=== PATIENT | male | born 1965 | race Caucasian/White ===

== ENCOUNTER 2017-11-22 22:35 | Emergency (ER) | payer BC ==
--- NOTE | 2017-11-23 00:31 | EDM.PDOC ---
ED HPI GENERAL MEDICAL PROBLEM - General Chief Complaint: Neck Problem Stated Complaint: NECK/HEAD PAIN; LYMES?? Time Seen by Provider: 11/23/17 00:22 Source of Information: Reports: Patient, RN Notes Reviewed History Limitations: Reports: No Limitations - History of Present Illness INITIAL COMMENTS - FREE TEXT/NARRATIVE: 51-year-old gentleman presents to the emergency department with complaint of neck pain and headache, he states this is very similar to when he had an episode of line couple years ago, he woke up this morning with a stiff neck but about his business today however the neck pain continued to get worse. 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 no fever - Related Data Allergies Allergy/AdvReac Type Severity Reaction Status Date / Time No Known Allergies Allergy Verified 11/22/17 23:08 Home Meds: Home Meds NK [No Known Home Meds] 11/22/17 [History] Past Medical History Cardiovascular History: Reports: Hypertension Gastrointestinal History: Reports: None Genitourinary History: Reports: None - Infectious Disease History Infectious Disease History: Reports: Other (See Below) ( Lyme disease) - Past Surgical History GI Surgical History: Reports: Hernia, Inguinal Other Musculoskeletal Surgeries/Procedures:: L HAND FX Social & Family History - Tobacco Use Smoking Status *Q: Unknown Ever Smoked ED ROS PEDIATRIC - Review of Systems Review Of Systems: See Below Constitutional: Denies: Fever Respiratory: Reports: No Symptoms Cardiovascular: Reports: No Symptoms Musculoskeletal: Reports: Neck Pain Skin: Reports: No Symptoms ED EXAM, GENERAL (PEDS) - Physical Exam Exam: See Below Exam Limited By: No Limitations General Appearance: WD/WN, No Apparent Distress Eyes: Bilateral: Normal Appearance Neck: Normal Inspection, Tender Lateral. No: Lymphadenopathy (R), Lymphadenopathy (L), Thyromegaly, Nuchal Rigidity Respiratory/Chest: No Respiratory Distress, Lungs Clear, Normal Breath Sounds, No Accessory Muscle Use Cardiovascular: Regular Rate, Rhythm, No Murmur Course - Vital Signs Last Recorded V/S: Last Vital Signs Temp 96.3 F 11/22/17 23:09 Pulse 61 11/22/17 23:09 Resp 14 11/22/17 23:09 BP 162/105 H 11/22/17 23:09 Pulse Ox 97 11/22/17 23:09 Departure - Departure Time of Disposition: 00:31 Disposition: Home, Self-Care 01 Condition: Good Clinical Impression: Neck pain - Discharge Information Referrals: Ricky Ambrocio MD [Primary Care Provider] - Additional Instructions: Take full course of antibiotics, use Flexeril as needed for pain control and muscle relaxant, Please followup with your primary care provider in 5-7 days if not better, please call return to the emergency department with worsening of symptoms. - Assessment/Plan Plan: Assessment Acuity = acute Site and laterality = neck pain Etiology = unclear etiology Manifestations = none Location of injury = Home Lab values = none Plan Given his history prescription written for doxycycline 100 mg by mouth twice a day 28 days also prescription written for Flexeril 10 mg by mouth 3 times a day when necessary total #15 him follow-up with his primary care in 5-7 days if no improvement This note was dictated using [employer] voice recognition software please call with any questions on syntax or grammar.
== END 2017-11-23 00:47 | disposition home or self-care (01) ==
LOC: JP.ED 22:35
DX: M54.2 Cervicalgia (principal); I10 Essential (primary) hypertension
CPT/HCPCS: 99284

== ENCOUNTER 2023-07-25 08:53 | Day surgery (SDC) | payer BC, OTHER ==
[2023-07-25] MEDS ORDERED: Midazolam 1 MG/ML 2 ML SDV ONE (09:27)
[2023-07-25] MEDS ORDERED: Propofol 200 MG/20 ML SDV ONE (09:27)
[2023-07-25] MEDS ORDERED: fentaNYL 50 MCG/ML SDV ONE (09:27)
[2023-07-25] MEDS: Lactated Ringers 1,000 ML IV SCH (09:39)
== END 2023-07-25 10:54 | disposition home or self-care (01) ==
LOC: JP.SDS 08:53
PROVIDERS: ATTEND Student in an Organized Health Care Education/Training Program
DX: K21.00 Gastro-esophageal reflux disease with esophagitis, without bleeding (principal); K29.70 Gastritis, unspecified, without bleeding; K22.89 Other specified disease of esophagus; I10 Essential (primary) hypertension
CPT/HCPCS: 43239; 88305; J2250; J2704; J3010; J7120

== ENCOUNTER 2024-03-18 06:43 | Day surgery (SDC) | payer OTHER ==
[2024-03-18] MEDS: Sodium Chloride 0.9% 1,000 ML IV SCH (07:02)
[2024-03-18] MEDS ORDERED: fentaNYL 50 MCG/ML SDV ONE (07:23)
[2024-03-18] MEDS ORDERED: Propofol 200 MG/20 ML SDV ONE ×2 (07:23→08:26)
[2024-03-18] MEDS ORDERED: Midazolam 1 MG/ML 2 ML SDV ONE (07:23)
== END 2024-03-18 09:50 | disposition home or self-care (01) ==
LOC: JP.SDS 06:43
PROVIDERS: ATTEND Surgery
DX: Z12.11 Encounter for screening for malignant neoplasm of colon (principal); D12.0 Benign neoplasm of cecum; K63.5 Polyp of colon; K57.30 Diverticulosis of large intestine without perforation or abscess without bleeding; I10 Essential (primary) hypertension; K21.9 Gastro-esophageal reflux disease without esophagitis
CPT/HCPCS: 00811; 45380; 45385; 88305; J2250; J2704; J3010; J7030

== ENCOUNTER 2025-05-22 13:44 | Emergency (ER) | payer OTHER | END 2025-05-22 15:35 | disposition home or self-care (01) | LOC: JP.ED 13:44 | DX: S93.402A Sprain of unspecified ligament of left ankle, initial encounter (principal); I10 Essential (primary) hypertension; Z79.899 Other long term (current) drug therapy; X50.9XXA Other and unspecified overexertion or strenuous movements or postures, initial encounter | CPT/HCPCS: 73610-26-LT; 73610-LT; 99283 ==